=== PATIENT | male | born 1950 | race Caucasian/White ===

== ENCOUNTER → 2018-06-07 | Outpatient (CLI) | payer MEDICARE ==
--- NOTE | 2018-06-07 14:14 | CT ---
EXAMINATION TYPE: CT iac wo con DATE OF EXAM: 06/07/2018 COMPARISON: None HISTORY: 67-year-old male with left ear pain. Cholesteatoma. History of left ear surgery. CT DLP: 142.7 mGycm Automated exposure control for dose reduction was used. TECHNIQUE: Contiguous high-resolution axial scanning of the temporal bones without IV contrast. Samantha nal reformatted images obtained. FINDINGS: There is no abnormality of visualized intracranial structures by thin section CT. The external auditory canals are patent. There is complete to near complete opacification of the left middle ear cavity with encasement of the middle ear ossicles which are diminutive and partially eroded. The scutum is blunted and opacificati on extends into hypoplastic left mastoid air cells. Bilaterally, there are resection changes extending into the mastoid air cells. Inferior most mastoid air cells are partially opacified but are hypoplastic on this side as well. The vestibular aqueduct are well visualized. The facial nerve canals are not well delineated along their vertical course. The internal auditory canal and meati are symmetrical bilaterally. Suspect old healed right nasal bone fracture. Lobulated mucosal thickening right maxillary sinus and mild mucosal thickening left maxillary sinus. Reformatted images confirm above findings. IMPRESSION: 1. Prior resection changes involving the bilateral mastoid air cells. 2. Extensive opacification of the left middle ear cavity extending into the resection cavity of the m astoid process. The scutum is blunted and the middle ear ossicles are very diminutive and partially e roded. Recurrent cholesteatoma is suggested. 3. The right mastoid air cells are hypoplastic but there is some partial opacification inferiorly noah t could represent trapped fluid. 4. The vertical course of the bilateral facial nerve canals are not well delineated.
== END | disposition home or self-care (01) ==
LOC: RADCTMAIN 11:01
PROVIDERS: ATTEND Otolaryngology
DX: H74.8X3 Other specified disorders of middle ear and mastoid, bilateral (principal); Z98.890 Other specified postprocedural states
CPT/HCPCS: 70480

== ENCOUNTER → 2019-09-14 | Outpatient (CLI) | payer MEDICARE | END | disposition home or self-care (01) | LOC: LABWHC1 12:53 | PROVIDERS: ATTEND Internal Medicine | DX: Z11.59 Encounter for screening for other viral diseases (principal) | CPT/HCPCS: U0003; C9803 ==

== ENCOUNTER → 2020-02-28 | Outpatient (CLI) | payer MEDICARE ==
[2020-02-28 09:43] LABS: Appearance,Urine Clear (Clear); Bilirubin,Urine Negative (Negative); Blood,Urine Negative (Negative); Color,Urine Yellow; Glucose,Urine (UA) Negative (Negative); HCT 42.1 % (39.0-53.0); HGB 14.7 gm/dL (13.0-17.5); Ketones,Urine Negative (Negative); Leukocyte Esterase,Urine Negative (Negative); MCH 32.7 pg (25.0-35.0); MCHC 34.9 g/dL (31.0-37.0); MCV 93.7 fL (80.0-100.0); Mean Platelet Volume 6.7; Nitrite,Urine Negative (Negative); Platelet Count 212 k/uL (150-450); Protein,Urine Negative (Negative); RBC 4.49 m/uL (4.30-5.90); RDW 12.9 % (11.5-15.5); Specific Gravity,Urine 1.021 (1.001-1.035); Urobilinogen,Urine <2.0 mg/dL (<2.0)
[2020-02-28 15:12] LABS: ALT 25 U/L (10-49); AST 24 U/L (14-35); African American GFR (CKD) 102.1 (60.0-200.0); Alkaline Phosphatase 60 U/L (41-126); BUN/Creat Ratio 16.67 Ratio (12.00-20.00); Calcium 9.2 mg/dL (8.7-10.3); Chloride 107 mmol/L (96-109); Chol/HDL Ratio 4.72; Cholesterol 203 mg/dL (0-200); Glucose 106 mg/dL (70-110); LDL Cholesterol,Calculated 137.2 mg/dL (0.0-131.0); Non-African American GFR(CKD) 88.1 (60.0-200.0); Potassium 4.4 mmol/L (3.5-5.5); Sodium 140 mmol/L (135-145); Total Bilirubin 0.5 mg/dL (0.3-1.2); Total Protein 6.4 g/dL (6.2-8.2)
[2020-02-28 15:26] LABS: Prostate Specific Antigen <0.1 ng/mL (0.0-4.5)
== END | disposition home or self-care (01) ==
LOC: LABWHC1 08:52
PROVIDERS: ATTEND Internal Medicine
DX: C61 Malignant neoplasm of prostate (principal); E78.5 Hyperlipidemia, unspecified; I10 Essential (primary) hypertension; M51.37 Other intervertebral disc degeneration, lumbosacral region
CPT/HCPCS: 36415; 80053; 80061; 81003; 84153; 85027

== ENCOUNTER → 2021-04-01 | Outpatient (CLI) | payer MEDICARE ==
--- NOTE | 2021-04-01 11:28 | CTL ---
EXAMINATION TYPE: CT Low Dose Lung DATE OF EXAM ORDERED: 04/01/2021 HISTORY: . Lung cancer screening CT DLP: 93.[address] CTDI: 2.3 mGy Automated exposure control for dose reduction was used. SCREENING VISIT: COMPARISON: TECHNIQUE: Low dose computed tomography scan was performed through the chest at 1 mm thick sections a nd reconstructed images in multiple planes at 1 mm and [address] DIAGNOSTIC QUALITY: Satisfactory FINDINGS: Subsegmental changes left lung base most typical of atelectasis. No pleural effusion. No pleural thickening or calcification. Mild emphysematous changes. Atherosclerotic change of the aorta. Maximal dimension of the ascending aorta is 4.4 cm compatible an eurysmal dilation. There is coronary artery calcification. Heart size within normal limits. Structure s of the upper abdomen demonstrate mild thickening of the left adrenal gland probable indeterminate h ypodense lesion of the right kidney only partially included in the [id number]. Hypertrophic and de generative changes of the spine. Mild basilar bronchiectasis. No sizable pulmonary nodules. IMPRESSION: 1. Mild COPD with subsegmental atelectasis left lung base favored. There is a 4.4 cm aneurysm of the ascending aorta. 2. Left basilar bronchiectasis. 3. No sizable pulmonary nodules. 4. Coronary artery calcification. CT LUNG RAD AND CT CHEST RECOMMENDATION: Lung-Rad 2 Benign Appearance or Behavior: Continue annual sc reening with LDCT in 12 months.
== END | disposition home or self-care (01) ==
LOC: RADCTMAIN 10:56
PROVIDERS: ATTEND Internal Medicine
DX: Z12.2 Encounter for screening for malignant neoplasm of respiratory organs (principal); I71.2 Thoracic aortic aneurysm, without rupture; J44.9 Chronic obstructive pulmonary disease, unspecified; I25.10 Atherosclerotic heart disease of native coronary artery without angina pectoris; J98.11 Atelectasis; Z87.891 Personal history of nicotine dependence
CPT/HCPCS: 71271

== ENCOUNTER → 2022-04-02 | Outpatient (CLI) | payer MEDICARE ==
--- NOTE | 2022-04-02 08:59 | CTL ---
EXAMINATION TYPE: CT Low Dose Lung DATE OF EXAM ORDERED: 04/02/2022 COMPARISON: 04/01/2021 HISTORY: . Low Dose CT Lung Screening CT DLP: 104.[address] CTDI: 2.9 mGy IV CONTRAST USED: None. SCREENING VISIT: Second COMPARISON: None. TECHNIQUE: Low dose computed tomography scan was performed through the chest at 1 millimeter thick se ctions and reconstructed images in the coronal plane at [address] DIAGNOSTIC QUALITY: Satisfactory FINDINGS: LUNG NODULES: Not presentLeft lung: no nodules identified.Right lung: no nodules identified. LUNGS: COPD: Severity: None Fibrosis: Severity:None Lymph nodes: None Other findings: Left basilar parenchymal scarring. RIGHT PLEURAL SPACE: Effusion: None Calcification: None Thickening: None Pneumothorax: None LEFT PLEURAL SPACE: Effusion: None Calcification: None Thickening: None Pneumothorax: None HEART: Heart Size: Mildly enlarged Coronary calcification: Mild Pericardial effusion: None Aorta: Ascending thoracic aortic aneurysm is stable at 4.4 cm. OTHER FINDINGS: Upper abdomen: No significant abnormality Bony thorax: Degenerative changes Supraclavicular region: No significant abnormalityOther: No significant abnormalityI IMPRESSION: Benign FOLLOW UP CT CHEST RECOMMENDATION: Follow-up screening in one year CT LUNG RAD: LUNG RAD CATEGORY 1 negative
--- NOTE | 2022-04-02 11:44 | US ---
EXAMINATION TYPE: US duplex aorta DATE OF EXAM: 04/02/2022 COMPARISON: CT chest 04/01/2022 CLINICAL HISTORY: 71-year-old male Z13.6 SCREENING FOR ABDOMINAL AORTIC ANEURYSM, Z72.0 TOBACCO. TECHNIQUE: Multiple sonographic images of the abdominal aorta are obtained. FINDINGS: EXAM MEASUREMENTS: Abdominal Aorta: Proximal: 2.3 x 2.0 cm Mid: 1.9 x 1.7 cm Distal: 1.9 x 1.8 cm Bifurcation: JAHAIRA 1.5 x 1.5 cm. LALI 1.5 x 1.4 cm. SOLE RUFFER NOTES: Midline limited by overlying bowel gas. Iliac arteries are upper limits of normal . IMPRESSION: 1. No sonographic evidence for AAA. 2. Borderline ectatic right and left common iliac arteries up to 1.5 cm.
== END | disposition home or self-care (01) ==
LOC: RADUSWWP 07:47
PROVIDERS: ATTEND Family Medicine
DX: Z12.2 Encounter for screening for malignant neoplasm of respiratory organs (principal); Z87.891 Personal history of nicotine dependence
CPT/HCPCS: 71271; 93979

== ENCOUNTER 2023-04-27 10:28 | Emergency (ER) | payer MEDICARE ==
[2023-04-27] MEDS: SODIUM CHLORIDE 0.9% 500 ML 500 ML IV STA (11:09)
[2023-04-27] MEDS: KETOROLAC 15 MG/ML 1 ML VIAL IVP STA (11:10)
--- NOTE | 2023-04-27 11:12 | ED ---
General Adult HPI - General Chief complaint: Abdominal Pain Stated complaint: lower abd pain Time Seen by Provider: 04/27/23 10:35 Source: patient, RN notes reviewed, old records reviewed Mode of arrival: ambulatory Limitations: no limitations - History of Present Illness Initial comments: This is a 72-year-old male who presents to the emergency department complaining of left lower quadrant abdominal pain. Patient states has been ongoing for 1 to 2 days. Patient denies any fever chills but patient has any radiation into the groin or to the back. Patient denies any dysuria hematuria urinary frequency. Patient has any chest pain difficulty breathing shortness of breath. Patient denies any nausea vomiting or diarrhea. Patient denies any changes in bowel habits. - Related Data Home Medications Medication Instructions Recorded Confirmed Ascorbic Acid [Vitamin C with Renetta 1,000 mg PO DAILY 04/24/15 04/27/23 Hips] Glucosamine/Chondr Ann A Sod [Osteo 1 tab PO DAILY 04/24/15 04/27/23 Bi-Flex Caplet] Lactobacillus Acidophilus 1 tab PO DAILY 04/24/15 04/27/23 [Acidophilus] Multivitamin [Men's Multi-Vitamin] 1 tab PO DAILY 04/24/15 04/27/23 Ubidecarenone [Co Q-10] 400 mg PO Q2D 04/24/15 04/27/23 Atorvastatin [Lipitor] 20 mg PO SA@2100 04/27/23 04/27/23 Cholecalciferol [Vitamin D3 (25 50 mcg PO DAILY 04/27/23 04/27/23 Mcg = 1000 Iu)] amLODIPine BESYLATE/BENAZEPRIL 1 cap PO DAILY 04/27/23 04/27/23 [amLODIPine BESYLATE/BENAZEPRIL 10-20 mg] Previous Rx's Medication Instructions Recorded Ibuprofen [Motrin] 600 mg PO Q6HR PRN #20 tab 04/27/23 Allergies Allergy/AdvReac Type Severity Reaction Status Date / Time Hjphecb-EJR-QaP Reductase Allergy low back Verified 04/27/23 11:09 Inhibitor and joint [Hpymdfq-Fke-Mku Reductase pain Inhibitor] Review of Systems ROS Statement: Those systems with pertinent positive or pertinent negative responses have been documented in the HPI. ROS Other: All systems not noted in ROS Statement are negative. Past Medical History Past Medical History: Cancer, Hyperlipidemia, Hypertension, Osteoarthritis (OA), Sleep Apnea/CPAP/BIPAP Additional Past Medical History / Comment(s): prostate cancer, had tumor lt midd le ear removed tumor and bone then rebuilt. History of Any Multi-Drug Resistant Organisms: None Reported Past Surgical History: Adenoidectomy, Ear Surgery, Hernia Repair, Prostate Surgery, Tonsillectomy Additional Past Surgical History / Comment(s): sleep apnea surgery, lt ear sx, 05-01-15 lt inguinal hernia repair and umbilical hernia repair,prostatectomy Past Anesthesia/Blood Transfusion Reactions: Motion Sickness, Postoperative Nausea & Vomiting (PONV) Past Psychological History: Depression Smoking Status: Former smoker Past Alcohol Use History: Daily, Heavy Past Drug Use History: Marijuana - Past Family History Brother(s) Family Medical History: Deep Vein Thrombosis (DVT) Mother Family Medical History: No Reported History Additional Family Medical History / Comment(s): from old age Father Family Medical History: Cancer Additional Family Medical History / Comment(s): dad was exposed to radiation from atomic bomb testing- of cancers caused by that exposure. General Exam - General Exam Comments Initial Comments: GENERAL: Patient is well-developed and well-nourished. Patient is nontoxic and well- hydrated and is in mild distress. ENT: Neck is soft and supple. No significant lymphadenopathy is noted. Oropharynx is clear. Moist mucous membranes. Neck has full range of motion without eliciting any pain. EYES: The sclera were anicteric and conjunctiva were pink and moist. Extraocular movements were intact and pupils were equal round and reactive to light. Eyelids were unremarkable. PULMONARY: Unlabored respirations. Good breath sounds bilaterally. No audible rales rhonchi or wheezing was noted. CARDIOVASCULAR: There is a regular rate and rhythm without any murmurs gallops or rubs. ABDOMEN: Patient has point tenderness left lower quadrant SKIN: Skin is clear with no lesions or rashes and otherwise unremarkable. NEUROLOGIC: Patient is alert and oriented x3. Cranial nerves II through XII are grossly intact. Motor and sensory are also intact. Normal speech, volume and content. Symmetrical smile. MUSCULOSKELETAL: Normal extremities with adequate strength and full range of motion. No lower extremity swelling or edema. No calf tenderness. LYMPHATICS: No significant lymphadenopathy is noted PSYCHIATRIC: Normal psychiatric evaluation. Limitations: no limitations Course Vital Signs 04/27/23 10:30 Temperature 97.7 F Pulse Rate 80 Respiratory 20 Rate Blood Pressure 162/103 O2 Sat by Pulse 98 Oximetry Medical Decision Making - Medical Decision Making Was pt. sent in by a medical professional or institution (, NICHO, SAFETY INSTRUCTOR, urgent care, hospital, or jail...) When possible be specific @ -No Did you speak to anyone other than the patient for history (EMS, parent, family, police, friend...)? What history was obtained from this source @ -No Did you review nursing and triage notes (agree or disagree)? Why? @ -I reviewed and agree with nursing and triage notes Were old charts reviewed (outside hosp., previous admission, EMS record, old EKG, old radiological studies, urgent care reports/EKG's, jail records)? Report findings @ -I reviewed prior charts and lab work on this patient Differential Diagnosis (chest pain, altered mental status, abdominal pain women, abdominal pain men, vaginal bleeding, weakness, fever, dyspnea, syncope, h eadache, dizziness, GI bleed, back pain, seizure, CVA, palpatations, mental health, musculoskeletal)? @ -Differential Abdominal Pain Men: Appendicitis, cholecystitis, diverticulosis, ischemic bowel, pancreatitis, hepatitis, UTI, gastroenteritis, AAA, incarcerated hernia, bowel obstruction, constipation, inflammatory bowel, hepatitis, peptic ulcer disease, splenic infarction, perforated viscus, testicular torsion, this is not meant to be an all-inclusive list EKG interpreted by me (3pts min.). @ -As above X-rays interpreted by me (1pt min.). @ -None done CT interpreted by me (1pt min.). @ -CT of the abdomen pelvis shows omental infarct U/S interpreted by me (1pt. min.). @ -None done What testing was considered but not performed or refused? (CT, X-rays, U/S, labs)? Why? @ -None What meds were considered but not given or refused? Why? @ -None Did you discuss the management of the patient with other professionals (professionals i.e. NICHO Man, SAFETY INSTRUCTOR, lab, RT, psych nurse, case management social worker, butt sawyer, teacher, logistics officer, adult protective caseworker)? Give summary @ -No Was smoking cessation discussed for >3mins.? @ -No Was critical care preformed (if so, how long)? @ -No Were there social determinants of health that impacted care today? How? (Homelessness, low income, unemployed, alcoholism, drug addiction, transportation, low edu. Level, literacy, decrease access to med. care, long term, rehab)? @ -No Was there de-escalation of care discussed even if they declined (Discuss DNR or withdrawal of care, Hospice)? DNR status @ -No What co-morbidities impacted this encounter? (DM, HTN, Smoking, COPD, CAD, C ancer, CVA, ARF, Chemo, Hep., AIDS, mental health diagnosis, sleep apnea, morbid obesity)? @ -None Was patient admitted / discharged? Hospital course, mention meds given and route, prescriptions, significant lab abnormalities, going to OR and other pertinent info. @ -Patient received Toradol for pain and was feeling much better. Patient's CAT scan showed omental infarct I explained this to the patient and he agrees that he will go home with a prescription for Motrin Undiagnosed new problem with uncertain prognosis? @ -No Drug Therapy requiring intensive monitoring for toxicity (Heparin, Nitro, Insulin, Cardizem)? @ -No Were any procedures done? @ -No Diagnosis/symptom? @ -Omental infarct Acute, or Chronic, or Acute on Chronic? @ -Acute Uncomplicated (without systemic symptoms) or Complicated (systemic symptoms)? @ -Complicated Side effects of treatment? @ -No Exacerbation, Progression, or Severe Exacerbation? @ -No Poses a threat to life or bodily function? How? (Chest pain, USA, ID, pneumonia, PE, COPD, DKA, ARF, appy, cholecystitis, CVA, Diverticulitis, Homicidal, Suicidal, threat to staff... and all critical care pts) @ -No - Lab Data Result diagrams: 04/27/23 11:13 04/27/23 11:13 Lab Results 04/27/23 04/27/23 Range/Units 11:13 11:13 WBC 5.9 (3.8-10.6) k/uL RBC 4.54 (4.30-5.90) m/uL Hgb 14.8 (13.0-17.5) gm/dL Hct 43.4 (39.0-53.0) % MCV 95.6 (80.0-100.0) fL MCH 32.6 (25.0-35.0) pg MCHC 34.1 (31.0-37.0) g/dL RDW 12.9 (11.5-15.5) % Plt Count 195 (150-450) k/uL MPV 7.3 Neutrophils % 63 % Lymphocytes % 24 % Monocytes % 7 % Eosinophils % 3 % Basophils % 1 % Neutrophils # 3.7 (1.3-7.7) k/uL Lymphocytes # 1.4 (1.0-4.8) k/uL Monocytes # 0.4 (0-1.0) k/uL Eosinophils # 0.2 (0-0.7) k/uL Basophils # 0.0 (0-0.2) k/uL Sodium 139 (137-145) mmol/L Potassium 4.6 (3.5-5.1) mmol/L Chloride 110 H (98-107) mmol/L Carbon Dioxide 25 (22-30) mmol/L Anion Gap 4 mmol/L BUN 14 (9-20) mg/dL Creatinine 0.77 (0.66-1.25) mg/dL Est GFR (CKD-EPI)AfAm >90 (>60 ml/min/1.73 sqM) Est GFR (CKD-EPI)NonAf >90 (>60 ml/min/1.73 sqM) Glucose 111 H (74-99) mg/dL Calcium 9.2 (8.4-10.2) mg/dL Total Bilirubin 0.5 (0.2-1.3) mg/dL AST 23 (17-59) U/L ALT 23 (4-49) U/L Alkaline Phosphatase 61 (38-126) U/L Total Protein 6.8 (6.3-8.2) g/dL Albumin 4.1 (3.5-5.0) g/dL Amylase 54 (30-110) U/L Lipase 59 (23-300) U/L Disposition Clinical Impression: Omental infarction Disposition: HOME SELF-CARE Condition: Good Instructions (If sedation given, give patient instructions): Abdominal Pain (ED) Prescriptions: Ibuprofen [Motrin] 600 mg PO Q6HR PRN #20 tab PRN Reason: For pain Is patient prescribed a controlled substance at d/c from ED?: No Referrals: Nas Rendon MD [Primary Care Provider] - 1-2 days Time of Disposition: 12:40
[2023-04-27 11:23] LABS: Basophils % (A) 1 %; Eosinophils # (A) 0.2 k/uL (0-0.7); Eosinophils % (A) 3 %; HCT 43.4 % (39.0-53.0); HGB 14.8 gm/dL (13.0-17.5); Lymphocytes # (A) 1.4 k/uL (1.0-4.8); Lymphocytes % (A) 24 %; MCH 32.6 pg (25.0-35.0); MCHC 34.1 g/dL (31.0-37.0); MCV 95.6 fL (80.0-100.0); Mean Platelet Volume 7.3; Monocytes # (A) 0.4 k/uL (0-1.0); Monocytes % (A) 7 %; Neutrophils # (A) 3.7 k/uL (1.3-7.7); Neutrophils % (A) 63 %; Platelet Count 195 k/uL (150-450); RBC 4.54 m/uL (4.30-5.90); RDW 12.9 % (11.5-15.5); WBC 5.9 k/uL (3.8-10.6)
--- NOTE | 2023-04-27 12:03 | CT ---
EXAMINATION TYPE: CT abdomen pelvis wo con CT DLP: 775.2 mGycm, Automated exposure control for dose reduction was used. DATE OF EXAM: 04/27/2023 11:36 AM COMPARISON: None CLINICAL INDICATION:Male, 72 years old with history of abdominal pain; Left groin pain, abdominal nichole n TECHNIQUE: Axial CT abdomen pelvis wo con;Sagittal and coronal reformats were created on a separate workstation. Contrast used: mL of , (none if empty) Oral contrast used: without Oral Contrast (none if empty) FINDINGS: LOWER CHEST: Unremarkable ABDOMEN LIVER: Unremarkable GALLBLADDER AND BILE DUCTS: Unremarkable. PANCREAS: Unremarkable. SPLEEN: Unremarkable. ADRENAL GLANDS: Unremarkable. KIDNEYS AND URETERS: No evidence of hydronephrosis or renal calculus. The ureters are unremarkable. PELVIS BLADDER: Unremarkable REPRODUCTIVE: Unremarkable. ABDOMEN & PELVIS STOMACH AND BOWEL: No evidence of bowel obstruction. Colonic diverticulosis. PERITONEUM/RETROPERITONEUM: No evidence of pneumoperitoneum or free fluid. Changes in the omentum just anterior to the left lower quadrant to multiple loops of bowel series 201 image 49. VASCULATURE: No evidence of aortic aneurysm. MUSCULOSKELETAL: No acute osseous abnormalities LYMPH NODES: No gross evidence for lymphadenopathy. SOFT TISSUE/ABDOMINAL WALL: Left fat-containing inguinal hernia, right fatty changes to the inguinal canal. IMPRESSION: 1. Fat-containing inguinal hernia on the left and fatty changes on the right. 2. Colonic diverticulosis. 3. Fat stranding changes in the left abdomen possibly representing omental infarct.
[2023-04-27 12:04] LABS: ALT 23 U/L (4-49); AST 23 U/L (17-59); African American GFR (CKD) >90 (>60 ml/min/1.73 sqM); Albumin 4.1 g/dL (3.5-5.0); Alkaline Phosphatase 61 U/L (38-126); Amylase 54 U/L (30-110); Anion Gap 4 mmol/L; Blood Urea Nitrogen 14 mg/dL (9-20); Calcium 9.2 mg/dL (8.4-10.2); Carbon Dioxide 25 mmol/L (22-30); Chloride 110 mmol/L (98-107); Glucose 111 mg/dL (74-99); Lipase 59 U/L (23-300); Non-African American GFR(CKD) >90 (>60 ml/min/1.73 sqM); Potassium 4.6 mmol/L (3.5-5.1); Sodium 139 mmol/L (137-145); Total Bilirubin 0.5 mg/dL (0.2-1.3); Total Protein 6.8 g/dL (6.3-8.2)
[2023-04-27 13:14] VITALS: BP 145/96; PULSE 68; RESP 18; TEMP 9.1
== END 2023-04-27 12:51 | disposition home or self-care (01) ==
LOC: EC 10:28
DX: K55.069 Acute infarction of intestine, part and extent unspecified (principal); K40.90 Unilateral inguinal hernia, without obstruction or gangrene, not specified as recurrent; K57.30 Diverticulosis of large intestine without perforation or abscess without bleeding; I10 Essential (primary) hypertension; G47.30 Sleep apnea, unspecified; M19.90 Unspecified osteoarthritis, unspecified site; E78.5 Hyperlipidemia, unspecified; F32.A Depression, unspecified; F12.90 Cannabis use, unspecified, uncomplicated; Z87.891 Personal history of nicotine dependence; Z79.899 Other long term (current) drug therapy; Z88.8 Allergy status to other drugs, medicaments and biological substances
CPT/HCPCS: 99284 ×2; 96374 ×2; 96361 ×3; 36415; 80053; 82150; 83690; 85025; 74176; J1885

== ENCOUNTER → 2023-04-27 | Outpatient (CLI) | payer MEDICARE ==
--- NOTE | 2023-04-27 15:24 | CTL ---
EXAMINATION TYPE: CT Low Dose Lung DATE OF EXAM: 04/27/2023 12:06 PM CLINICAL INDICATION:Male, 72 years old with history of Z12.2 ENCNTR SCREEN FOR MALIGNANT NEOPLASM OF RESP; personal hx of nicotine dependence not currently smoking 1ppd X 40 years , history of tobacco u se. COMPARISON: 04/02/2022. TECHNIQUE: Multiple axial non-contrast scans were obtained from approximately the lung apices through the upper abdomen. Coronal and sagittal reformatted images were obtained. Low dose technique was uti lized. CT DLP: 83 mGycm, Automated exposure control for dose reduction was used. CT Contrast: Contrast used: None Oral contrast used: None FINDINGS: ======== Lack of intravenous contrast and low dose technique limits the evaluation of the vascular and soft ti ssue structures. LUNGS: No evidence of pulmonary fibrosis. No evidence of focal consolidation, pneumothorax or pleural effusion. Mild emphysema changes. Streaky atelectasis in the lung bases. Nodules: RUL: None. RML: None. RLL: None. EMPERATRIZ: None. LLL: None. AIRWAY: Patent and unremarkable. HEART: Size within normal limits. Mild coronary artery atherosclerosis. MEDIASTINUM: No gross evidence of adenopathy. VASCULATURE: No aortic aneurysm. MUSCULOSKELETAL: No acute osseous abnormalities SOFT TISSUES/LYMPH NODES: Unremarkable. LOWER NECK: No significant findings. UPPER ABDOMEN: No significant findings. IMPRESSION: 1. No clinically significant pulmonary nodules. 2. Mild emphysema. CT LUNG RAD AND CT CHEST RECOMMENDATION: Lung-Rad 1 Negative: Continue annual screening with LDCT in 12 months. S Modifier (other clinically significant findings): None Recommend smoking cessation (if current smoker), or continuation of smoking cessation (if prior smoke r). Annual screening for lung cancer with low-dose computed tomography is recommended in adults ages 55 to 77 years who have a 30 pack-year smoking history and currently smoke or have quit within the pa st 15 years. Screening should be discontinued once a person has not smoked for 15 years or develops a health problem that substantially limits life expectancy or the ability or willingness to have curat nan lung surgery. Lung rads 2021 [email or web address]
== END | disposition home or self-care (01) ==
LOC: RADCTMAIN 09:55
PROVIDERS: ATTEND Family Medicine
DX: Z12.2 Encounter for screening for malignant neoplasm of respiratory organs (principal); Z87.891 Personal history of nicotine dependence; J43.9 Emphysema, unspecified
CPT/HCPCS: 71271

== ENCOUNTER → 2024-04-28 | Outpatient (CLI) | payer MEDICARE ==
--- NOTE | 2024-04-28 11:19 | CTL ---
EXAMINATION TYPE: CT Low Dose Lung DATE OF EXAM ORDERED: 04/28/2024 COMPARISON: CT low-dose lung 04/27/2023, 04/02/2022, 04/01/2021 CLINICAL INDICATION: Male, 73 years old with history of Z12.2 LUNG CANCER SCREENING Z87.891; [facility], For fransico smoker, 5 years ago, was 1 ppd x 20 years, Lung cancer screening, History of Smoking/tobacco use. TECHNIQUE: Low dose computed tomography scan was performed through the chest at 1 mm thick sections a nd reconstructed images in multiple planes at 1 mm and [address] DLP: 136.[address] CTDI: 3.6 mGy Automated exposure control for dose reduction was used. CT DIAGNOSTIC QUALITY: Satisfactory FINDINGS: Nodules: No clinically significant pulmonary nodules. LUNGS: COPD: Severity: None Fibrosis: Severity: None Lymph nodes: None Other findings: Lower lobe linear scarring or atelectasis. RIGHT PLEURAL SPACE: Effusion: None Calcification: None Thickening: None Pneumothorax: None LEFT PLEURAL SPACE: Effusion: None Calcification: None Thickening: None Pneumothorax: None HEART: Heart Size: Normal Coronary Calcification: Mild Pericardial Effusion: None OTHER FINDINGS: Upper abdomen: Cholelithiasis. Bony thorax: DISH of the thoracic spine. Supraclavicular region: None Other: Stable ascending thoracic aortic aneurysm measuring up to 4.4 cm. IMPRESSION: 1. No clinically significant pulmonary nodules. 2. Stable ascending thoracic aortic aneurysm measuring up to 4.[address] LUNG RAD AND CT CHEST RECOMMENDATION: Lung-Rad 1 Negative: Continue annual screening with LDCT in 12 months. S Modifier (other clinically significant findings): None [facility], , 04/28/2024 11:17 AM
== END | disposition home or self-care (01) ==
LOC: RADCTMAIN 10:36
PROVIDERS: ATTEND Internal Medicine
DX: Z12.2 Encounter for screening for malignant neoplasm of respiratory organs (principal); I71.21 Aneurysm of the ascending aorta, without rupture; K80.20 Calculus of gallbladder without cholecystitis without obstruction; Z87.891 Personal history of nicotine dependence
CPT/HCPCS: 71271